=== PATIENT | female | born 1995 | race Caucasian/White ===

== ENCOUNTER 2018-02-27 13:22 | Emergency (ER) | payer OTHER ==
[~2018-02-27] VITALS: Ht 170.2 cm; Wt 68.2 kg
[2018-02-27 14:43] LABS: BASO # 0.1 x10^3/uL (0.0-0.2); BASO % 1 % (0-3); EOS # 0.1 x10^3/uL (0.0-0.7); EOS % 1 % (0-3); HEMATOCRIT 41.9 % (36.0-47.0); HEMOGLOBIN 14.5 g/dL (12.0-15.5); LYMPH # 1.9 x10^3/uL (1.0-4.8); LYMPH % 18 % (24-48); MEAN CORPUSCULAR HEMOGLOBIN 30 pg (25-35); MEAN CORPUSCULAR HGB CONC 35 g/dL (31-37); MEAN CORPUSCULAR VOLUME 87 fL (79-100); MONO # 0.5 x10^3/uL (0.0-1.1); MONO % 5 % (0-9); NEUT # 8.2 x10^3uL (1.8-7.7); NEUT % 76 % (31-73); PLATELET COUNT 277 x10^3/uL (140-400); RED BLOOD COUNT 4.84 x10^6/uL (3.50-5.40); RED CELL DISTRIBUTION WIDTH 12.6 % (11.5-14.5); WHITE BLOOD COUNT 10.8 x10^3/uL (4.0-11.0)
[2018-02-27] MEDS ORDERED: ONDANSETRON PF 4 MG/2 ML VIAL. IV ONE (14:45)
[2018-02-27] MEDS ORDERED: KETOROLAC 30 MG/ML VIAL. IV ONE (14:45)
[2018-02-27] MEDS ORDERED: IV NORMAL SALINE 1000ML BAG 1,000 ML IV ONE (14:45)
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
[2018-02-27 15:01] LABS: CALCIUM 9.2 mg/dL (8.5-10.1); CREATININE 0.7 mg/dL (0.6-1.0); GFR 105.6; POTASSIUM 4.1 mmol/L (3.5-5.1)
[2018-02-27 15:06] LABS: ALBUMIN 3.8 g/dL (3.4-5.0); TOTAL BILIRUBIN 0.5 mg/dL (0.2-1.0); TOTAL PROTEIN 7.5 g/dL (6.4-8.2)
--- NOTE | 2018-02-27 15:07 | RAD ---
CHEST PA LATERAL History: ER PATIENT. DIZZINESS, CONFUSION X3 DAYS. NEAR SYNCOPE TODAY. MILD CHEST DISCOMFORT. NO PRIORS.. Comparison: None. Heart size: Within normal limits. Amaris/mediastinum: Within normal limits Lungs: No focal airspace consolidation. Pleura: No evidence of pleural effusion. Pneumothorax: None visualized Bones: Regional skeleton appears grossly intact. Miscellaneous: None Impression: No acute infiltrate identified. Electronically signed by: Vincenzo Reyes MD (02/27/2018 3:04 PM) [facility]
[2018-02-27 16:10] VITALS: BP 110/70
--- NOTE | 2018-02-27 17:32 | EKG ---
[facility] [address] [place] [address] Test Date: 2018-02-27 Test Time: 14:05:54 Pat Name: SUMANTH PACHECO Department: Room: Gender: F Student Recruiter: : 1995 Requested By: ANDIE NICKERSON Order Number: [id number] Reading MD: Merlin Hernandez Measurements Intervals [place] Rate: 88 P: 42 WV: 178 QRS: 77 QRSD: 78 T: 28 QT: 356 QTc: 434 Interpretive Statements SINUS RHYTHM NORMAL ECG Electronically Signed On 03-02-2018 11:06:42 SENIOR PRODUCT DEVELOPMENT MANAGER by Merlin Hernandez
== END 2018-02-27 16:10 | disposition home or self-care (01) ==
LOC: ER 13:22
DX: F43.0 Acute stress reaction (principal); R55 Syncope and collapse; N92.0 Excessive and frequent menstruation with regular cycle; R06.02 Shortness of breath; R05 Cough; R51 Headache; R49.0 Dysphonia; J34.89 Other specified disorders of nose and nasal sinuses; R07.89 Other chest pain; R41.0 Disorientation, unspecified; F31.9 Bipolar disorder, unspecified
CPT/HCPCS: 36415; 71046; 80053; 81025; 83690; 85025; 93005; 96361; 96374; 96375; 99284; J1885; J2405; J7030